=== PATIENT | female | born 2000 | race Caucasian/White ===

== ENCOUNTER 2025-05-09 07:25 | Emergency (ER) | payer SELFPAY ==
--- OUTSIDE RECORDS SUMMARY | 2025-05-09 07:28 | XMS_ITS | Clinical Summary ---
Author Organization [facility] Address [facility] [place] [address] Care Team Providers Care Sock Mender Name Role Phone Unavailable Primary Care Provider Unavailabl e Social History Tobacco Use Types Packs/Day Years Used Date Smoking Tobacco: Never Assessed Comments Unknown Sex and Gender Information Value Date Recorded Sex Assigned at Not on file Legal Sex Female 5:52 PM DOG DAYCARE PROVIDER Gender Identity Not on file Sexual Orientation Not on file Plan of Treatment Health Maintenance Due Date Last Done Comments Cervical Cancer Screening Pa p Smear (Age 21 to 29) Every 3 Years 2000 Cervical Cancer Screening 2000 Annual Physical 2003 HPV Vaccines (1 - 3-dose series) 2015 Hepatitis C 2018 DTaP, Tdap and Td Vaccines ( 1 - Tdap) 2019 Hepatitis B Vaccines (1 of 3 - 19+ 3-dose series) 2019 COVID-19 Vaccine (2024-2 6 season) 2025 Influenza Adult (#1) 2025 Hepatitis A Vaccines Aged Out No long er eligible based on patient's age to complete this topic Meningococcal B Vaccine Aged Out No l onger eligible based on patient's age to complete this topic Meningococcal Vaccine Aged Out No mariela walter eligible based on patient's age to complete this topic Pneumococcal Vaccine: Pediat rics (0 to 5 Years) and At-Risk Patients (6 to 49 Years) Aged Out No longer eligible b ased on patient's age to complete this topic RSV Immunizations Under 20 Months Aged Out No longer eligible based on patient's age to complete this topic
[2025-05-09 07:30] VITALS: BP 132/97; PULSE 74; RESP 18; TEMP 36.4; O2SAT 99
--- NOTE | 2025-05-09 07:45 | PC.NURSE ---
Snellen Eye Exam 25/20 R. eye, 20/20 L. eye, Bilateral 20/20.
--- OUTSIDE RECORDS SUMMARY | 2025-05-09 07:50 | XMS_ITS | Clinical Summary ---
Author Organization [facility] Address [facility] [place] [address] Care Team Providers Care Director Weights And Measures Name Role Phone Unavailable Primary Care Provider Unavailabl e Social History Tobacco Use Types Packs/Day Years Used Date Smoking Tobacco: Never Assessed Comments Unknown Sex and Gender Information Value Date Recorded Sex Assigned at Not on file Legal Sex Female 5:52 PM COO Gender Identity Not on file Sexual Orientation [...]
[2025-05-09] MEDS: FLUORESCEIN SOD 1 MG/STRIP EACH EYE (08:30)
[2025-05-09] MEDS: DACRIOSE EYE IRRIGATION 118 ML BOTTLE 10 ML EACH EYE (08:31)
[2025-05-09] MEDS: TETRACAINE HCL 0.5% OPHTH SOLN 4 ML BTL 1 DROP EACH EYE (08:31)
[2025-05-09 09:23] VITALS: BP 112/65; PULSE 60; RESP 16; O2SAT 100
--- NOTE | 2025-05-09 09:27 | ED_ITS ---
HPI - Eye Problem General Chief complaint: Eye Problems Stated complaint: Scratched Eye Time Seen by Provider: 05/09/25 07:31 Source: patient Mode of arrival: ambulatory Limitations: no limitations History of Present Illness HPI Narrative: This is a 25-year-old female that has a foreign body sensation and irritation to her left eye who is trying to place contacts in her eye and remove them and cause some irritation redness and tearing. Otherwise has some photophobia with no blurry vision no problems with visual acuity. chief complaint: eye pain and eye redness Onset (ago): hour(s) Duration: constant Location: left eye Eye Symptoms: redness, pain and foreign body sensation Severity: moderate Related Data Allergies Allergy/AdvReac Type Severity Reaction Status Date / Time No Known Allergies Allergy Verified 05/09/25 08:23 Review of Systems Review of Systems: All systems reviewed & are unremarkable except as noted in HPI and below Exam Const: General: healthy appearing and no acute distress Nutritional Ap pearance: well nourished Orientation/consciousness: patient oriented x3 Limitations: no limitations HENMT: Head: normal to inspection Eyes: Conjunctivae: conjunctival abnormality Direct Ophthalmoscopy: photophobia Neck: Neck: normal visual inspection Chest: Chest palpation & inspection: normal inspection of the chest Cardio: Rate: regular rate Rhythm: regular rhythm GI: GI Palp: Yes Soft to palpation Auscultation: normal bowel sounds Course Course Emergency Course: Medical decision making narrative: The patient was evaluated by myself in the emergency department. History obtained from the patient who is an independent historian physical exam performed witnessed by nurse. Dextrose fluorescein stain eye irrigation and visualized no foreign bodies were used no corneal abrasion. Repeat assessment Patient doing well on repeat exam with no acute distress Symptoms improved since arrival to the emergency department Repeat vitals are stable Patient agrees with discussion after shared medical decision-making and agrees with discharge All questions answered to the patient's satisfaction. Follow with primary in the next 3 to 5 days. Vital Signs Vital signs: Vital Signs Temperature 36.4 C 05/09/25 07:30 Pulse Rate 74 05/09/25 07:30 Respiratory Rate 18 05/09/25 07:30 Blood Pressure 132/97 H 05/09/25 07:30 Pulse Oximetry 99 05/09/25 07:30 Oxygen Delivery Room Air 05/09/25 07:30 Temperature 36.4 C 05/09/25 07:30 Pulse Rate 60 05/09/25 09:23 Respiratory Rate 16 05/09/25 09:23 Blood Pressure 112/65 05/09/25 09:23 Pulse Oximetry 100 05/09/25 09:23 Oxygen Delivery Room Air 05/09/25 09:23 [facility] Differential Diagnosis Differential Diagnosis: Conjunctivitis Critical Care Time Critical Care Time Critical Care Time: No Discharge Plan Discharge Clinical Impression: Conjunctivitis Qualifiers: Conjunctivitis type: acute Acute conjunctivitis type: unspecified Laterality: left Qualified Code(s): H10.32 - Unspecified acute conjunctivitis, left eye Patient Disposition: Home Condition: Stable Instructions: Antibiotic Form, Conjunctivitis (ED) Additional Instructions: Advised take medication as prescribed and follow with primary in the next 3 to 5 days further evaluation treatment. Patient Language: Czech Prescriptions: New neomycin-polymyxin B-dexameth [Maxitrol] 3.5mg/mL-10,000 unit/mL-0.1 % drops,suspension 1 drp LEFT EYE Q4H 7 Days Qty: 5 0RF naproxen 500 mg tablet 500 mg PO BID PRN (Reason: pain) Qty: 14 0RF Follow-up/Referrals: Dylan Covington MD [Primary Care Provider, Internal Medicine] Time of Disposition: 09:32
[2025-05-09] MEDS: NEOMYCIN/POLYMYXIN/DEXAMETH OP OINT 3.5 GM TUBE 1 APPLIC EACH EYE (09:44)
== END 2025-05-09 09:53 | disposition home or self-care (01) ==
PROVIDERS: Emergency Provider Emergency Medicine; PCP Internal Medicine
DX: H10.32 Unspecified acute conjunctivitis, left eye (principal)
CPT/HCPCS: 99283; A9270